=== PATIENT | male | born 1975 | race Caucasian/White ===

== ENCOUNTER → 2019-04-07 | Outpatient (CLI) | payer MEDICARE ==
[2019-04-07 15:30] LABS: BASO # 0.1 (0.02-0.10); EOS # 0.1 (0.04-0.40); HEMATOCRIT 42.1 % (42.0-52.0); HEMOGLOBIN 13.2 g/dL (13.5-18.0); LYMPH# 2.4 (1.50-4.00); MEAN CELL VOLUME 89 fl (78-100); MEAN CORPUSCULAR HEMOGLOBIN 28 pg (27-31); MEAN CORPUSCULAR HGB CONC 31 g/dL (33-37); MEAN PLATELET VOLUME 9.2 fl (7.4-10.4); MONO # 0.7 (0.20-0.80); NEU # 5.5 (1.40-6.50); PLATELET COUNT 267 K/mm3 (130-400); RED BLOOD COUNT 4.71 M/mm3 (4.20-5.60); RED CELL DISTRIBUTION WIDTH 14.9 % (11.5-14.5); WHITE BLOOD COUNT 8.8 K/mm3 (4.8-10.8)
[2019-04-07 15:54] LABS: POTASSIUM 3.9 mmol/L (3.5-5.1)
[2019-04-07 15:55] LABS: ALBUMIN 4.1 g/dL (3.5-5.0)
[2019-04-07 15:56] LABS: CALCIUM 9.1 mg/dL (8.3-10.5)
[2019-04-07 15:57] LABS: TOTAL PROTEIN 7.1 g/dL (6.4-8.3)
[2019-04-07 15:59] LABS: TOTAL BILIRUBIN 0.9 mg/dL (0.2-1.2)
[2019-04-07 16:03] LABS: MAGNESIUM 1.39 mg/dL (1.60-2.60)
[2019-04-07 16:34] LABS: ERYTHROCYTE SEDIMENTATION RATE 9 mm/hr (0-15)
[2019-04-08 15:19] LABS: TESTOSTERONE 293 ng/dL (240-871)
== END ==
LOC: RAD 14:47
PROVIDERS: Internal Medicine
DX: Z12.5 Encounter for screening for malignant neoplasm of prostate (principal); I50.23 Acute on chronic systolic (congestive) heart failure; E11.9 Type 2 diabetes mellitus without complications; N52.9 Male erectile dysfunction, unspecified; K90.9 Intestinal malabsorption, unspecified; I51.7 Cardiomegaly; R20.2 Paresthesia of skin

== ENCOUNTER → 2019-05-05 | Outpatient (CLI) | payer MEDICARE ==
[2019-05-05 17:41] LABS: ALBUMIN 4.3 g/dL (3.5-5.0); POTASSIUM 4.8 mmol/L (3.5-5.1)
[2019-05-05 17:42] LABS: CALCIUM 10.3 mg/dL (8.3-10.5)
[2019-05-05 17:43] LABS: BASO # 0.1 (0.02-0.10); EOS # 0.1 (0.04-0.40); EOS % 1.5 % (0.0-4.0); HEMATOCRIT 52.6 % (42.0-52.0); HEMOGLOBIN 16.5 g/dL (13.5-18.0); LYMPH# 3.1 (1.50-4.00); MEAN CELL VOLUME 81 fl (78-100); MEAN CORPUSCULAR HEMOGLOBIN 26 pg (27-31); MEAN CORPUSCULAR HGB CONC 31 g/dL (33-37); MEAN PLATELET VOLUME 9.9 fl (7.4-10.4); MONO # 0.8 (0.20-0.80); NEU # 3.1 (1.40-6.50); PLATELET COUNT 287 K/mm3 (130-400); RED BLOOD COUNT 6.48 M/mm3 (4.20-5.60); RED CELL DISTRIBUTION WIDTH 16.3 % (11.5-14.5); WHITE BLOOD COUNT 7.2 K/mm3 (4.8-10.8)
[2019-05-05 17:44] LABS: TOTAL PROTEIN 9.2 g/dL (6.4-8.3)
[2019-05-05 17:45] LABS: TOTAL BILIRUBIN 0.8 mg/dL (0.2-1.2)
[2019-05-05 17:50] LABS: MAGNESIUM 1.71 mg/dL (1.60-2.60)
== END ==
LOC: LAB 17:13
PROVIDERS: Internal Medicine
DX: E11.9 Type 2 diabetes mellitus without complications (principal); I50.23 Acute on chronic systolic (congestive) heart failure

== ENCOUNTER → 2019-06-02 | Outpatient (CLI) | payer MEDICARE, MEDICAID ==
[2019-06-02 16:40] LABS: EOS # 0.1 (0.04-0.40); EOS % 1.3 % (0.0-4.0); HEMATOCRIT 49.5 % (42.0-52.0); HEMOGLOBIN 16.1 g/dL (13.5-18.0); LYMPH# 3.1 (1.50-4.00); MEAN CELL VOLUME 79 fl (78-100); MEAN CORPUSCULAR HEMOGLOBIN 26 pg (27-31); MEAN CORPUSCULAR HGB CONC 33 g/dL (33-37); MEAN PLATELET VOLUME 9.7 fl (7.4-10.4); MONO # 0.6 (0.20-0.80); NEU # 3.7 (1.40-6.50); PLATELET COUNT 225 K/mm3 (130-400); RED BLOOD COUNT 6.27 M/mm3 (4.20-5.60); RED CELL DISTRIBUTION WIDTH 16.9 % (11.5-14.5); WHITE BLOOD COUNT 7.4 K/mm3 (4.8-10.8)
[2019-06-02 16:48] LABS: ALBUMIN 4.3 g/dL (3.5-5.0)
[2019-06-02 16:49] LABS: POTASSIUM 4.3 mmol/L (3.5-5.1)
[2019-06-02 16:50] LABS: CALCIUM 8.6 mg/dL (8.3-10.5)
[2019-06-02 16:51] LABS: TOTAL PROTEIN 8.6 g/dL (6.4-8.3)
[2019-06-02 16:53] LABS: TOTAL BILIRUBIN 0.9 mg/dL (0.2-1.2)
[2019-06-02 16:58] LABS: MAGNESIUM 1.55 mg/dL (1.60-2.60)
== END ==
LOC: LAB 16:23
PROVIDERS: Internal Medicine
DX: E11.9 Type 2 diabetes mellitus without complications (principal); I50.23 Acute on chronic systolic (congestive) heart failure

== ENCOUNTER → 2019-06-16 | Outpatient (CLI) | payer MEDICARE, MEDICAID ==
[2019-06-16 17:23] LABS: ALBUMIN 4.5 g/dL (3.5-5.0); POTASSIUM 4.2 mmol/L (3.5-5.1)
[2019-06-16 17:24] LABS: CALCIUM 10.1 mg/dL (8.3-10.5)
[2019-06-16 17:25] LABS: TOTAL PROTEIN 8.4 g/dL (6.4-8.3)
[2019-06-16 17:27] LABS: TOTAL BILIRUBIN 0.5 mg/dL (0.2-1.2)
[2019-06-16 17:32] LABS: MAGNESIUM 1.87 mg/dL (1.60-2.60)
== END ==
LOC: LAB 16:49
PROVIDERS: Internal Medicine
DX: E11.9 Type 2 diabetes mellitus without complications (principal); I50.23 Acute on chronic systolic (congestive) heart failure

== ENCOUNTER → 2019-06-23 | Outpatient (CLI) | payer MEDICARE, MEDICAID ==
[2019-06-23 17:34] LABS: ALBUMIN 3.8 g/dL (3.5-5.0); POTASSIUM 4.3 mmol/L (3.5-5.1)
[2019-06-23 17:37] LABS: TOTAL PROTEIN 7.6 g/dL (6.4-8.3)
[2019-06-23 17:39] LABS: TOTAL BILIRUBIN 0.5 mg/dL (0.2-1.2)
[2019-06-23 17:43] LABS: MAGNESIUM 1.81 mg/dL (1.60-2.60)
== END ==
LOC: LAB 17:05
PROVIDERS: Internal Medicine
DX: E11.9 Type 2 diabetes mellitus without complications (principal); I50.23 Acute on chronic systolic (congestive) heart failure

== ENCOUNTER → 2019-06-30 | Outpatient (CLI) | payer MEDICARE, MEDICAID ==
[2019-06-30 17:29] LABS: ALBUMIN 4.2 g/dL (3.5-5.0)
[2019-06-30 17:30] LABS: POTASSIUM 4.1 mmol/L (3.5-5.1)
[2019-06-30 17:31] LABS: CALCIUM 9.4 mg/dL (8.3-10.5)
[2019-06-30 17:32] LABS: TOTAL PROTEIN 8.3 g/dL (6.4-8.3)
[2019-06-30 17:34] LABS: TOTAL BILIRUBIN 0.6 mg/dL (0.2-1.2)
[2019-06-30 17:38] LABS: MAGNESIUM 1.68 mg/dL (1.60-2.60)
== END ==
LOC: LAB 17:04
PROVIDERS: Internal Medicine
DX: E11.9 Type 2 diabetes mellitus without complications (principal); I50.23 Acute on chronic systolic (congestive) heart failure

== ENCOUNTER → 2019-07-07 | Outpatient (CLI) | payer MEDICARE, MEDICAID ==
[2019-07-07 16:36] LABS: POTASSIUM 4.5 mmol/L (3.5-5.1)
[2019-07-07 16:37] LABS: CALCIUM 9.3 mg/dL (8.3-10.5)
[2019-07-07 16:38] LABS: TOTAL PROTEIN 7.6 g/dL (6.4-8.3)
[2019-07-07 16:40] LABS: TOTAL BILIRUBIN 0.4 mg/dL (0.2-1.2)
[2019-07-07 16:45] LABS: MAGNESIUM 1.58 mg/dL (1.60-2.60)
== END ==
LOC: LAB 16:08
PROVIDERS: Internal Medicine
DX: I50.23 Acute on chronic systolic (congestive) heart failure (principal); E11.9 Type 2 diabetes mellitus without complications

== ENCOUNTER → 2019-07-21 | Outpatient (CLI) | payer MEDICARE, MEDICAID ==
[2019-07-21 17:42] LABS: ALBUMIN 4.3 g/dL (3.5-5.0)
[2019-07-21 17:43] LABS: POTASSIUM 4.8 mmol/L (3.5-5.1)
[2019-07-21 17:44] LABS: CALCIUM 9.9 mg/dL (8.3-10.5)
[2019-07-21 17:47] LABS: TOTAL BILIRUBIN 0.6 mg/dL (0.2-1.2)
[2019-07-21 17:52] LABS: MAGNESIUM 2.18 mg/dL (1.60-2.60)
== END ==
LOC: LAB 16:55
PROVIDERS: Internal Medicine
DX: M79.642 Pain in left hand (principal)

== ENCOUNTER → 2019-09-04 | Outpatient (CLI) | payer MEDICARE, MEDICAID ==
[2019-09-04 10:55] LABS: ALBUMIN 3.7 g/dL (3.5-5.0)
[2019-09-04 10:56] LABS: POTASSIUM 3.8 mmol/L (3.5-5.1)
[2019-09-04 10:57] LABS: CALCIUM 8.3 mg/dL (8.3-10.5)
[2019-09-04 10:58] LABS: TOTAL PROTEIN 7.4 g/dL (6.4-8.3)
[2019-09-04 11:00] LABS: TOTAL BILIRUBIN 0.4 mg/dL (0.2-1.2)
[2019-09-04 11:02] LABS: EOS # 0.1 (0.04-0.40); EOS % 1.2 % (0.0-4.0); HEMATOCRIT 38.9 % (42.0-52.0); HEMOGLOBIN 12.2 g/dL (13.5-18.0); MEAN CELL VOLUME 94 fl (78-100); MEAN CORPUSCULAR HEMOGLOBIN 29 pg (27-31); MEAN CORPUSCULAR HGB CONC 31 g/dL (33-37); MEAN PLATELET VOLUME 8.5 fl (7.4-10.4); MONO # 0.5 (0.20-0.80); NEU # 4.7 (1.40-6.50); RED BLOOD COUNT 4.15 M/mm3 (4.20-5.60); RED CELL DISTRIBUTION WIDTH 16.8 % (11.5-14.5); WHITE BLOOD COUNT 8.4 K/mm3 (4.8-10.8)
[2019-09-04 11:04] LABS: MAGNESIUM 1.86 mg/dL (1.60-2.60)
[2019-09-04 11:17] LABS: PLATELET COUNT 586 K/mm3 (130-400)
== END ==
LOC: LAB 10:13
PROVIDERS: Internal Medicine
DX: E11.9 Type 2 diabetes mellitus without complications (principal); I50.23 Acute on chronic systolic (congestive) heart failure

== ENCOUNTER → 2020-01-06 | Outpatient (CLI) | payer MEDICARE, MEDICAID ==
[2020-01-06 15:58] LABS: EOS # 0.1 (0.04-0.40); EOS % 1.5 % (0.0-4.0); HEMATOCRIT 51.5 % (42.0-52.0); HEMOGLOBIN 16.7 g/dL (13.5-18.0); LYMPH# 3.6 (1.50-4.00); MEAN CELL VOLUME 87 fl (78-100); MEAN CORPUSCULAR HEMOGLOBIN 28 pg (27-31); MEAN CORPUSCULAR HGB CONC 32 g/dL (33-37); MEAN PLATELET VOLUME 9.5 fl (7.4-10.4); MONO # 0.6 (0.20-0.80); NEU # 4.7 (1.40-6.50); PLATELET COUNT 212 K/mm3 (130-400); RED BLOOD COUNT 5.91 M/mm3 (4.20-5.60); RED CELL DISTRIBUTION WIDTH 15.5 % (11.5-14.5); WHITE BLOOD COUNT 9.1 K/mm3 (4.8-10.8)
[2020-01-06 16:08] LABS: ALBUMIN 4.4 g/dL (3.5-5.0)
[2020-01-06 16:09] LABS: POTASSIUM 4.5 mmol/L (3.5-5.1)
[2020-01-06 16:10] LABS: CALCIUM 9.5 mg/dL (8.3-10.5)
[2020-01-06 16:11] LABS: TOTAL PROTEIN 8.9 g/dL (6.4-8.3)
[2020-01-06 16:13] LABS: TOTAL BILIRUBIN 0.8 mg/dL (0.2-1.2)
[2020-01-06 16:18] LABS: MAGNESIUM 1.64 mg/dL (1.60-2.60)
== END ==
LOC: LAB 15:32
PROVIDERS: Internal Medicine
DX: E11.9 Type 2 diabetes mellitus without complications (principal); I50.20 Unspecified systolic (congestive) heart failure

== ENCOUNTER → 2020-03-01 | Outpatient (CLI) | payer MEDICARE, MEDICAID ==
[2020-03-01 12:59] LABS: EOS # 0.1 (0.04-0.40); EOS % 1.2 % (0.0-4.0); HEMATOCRIT 44.6 % (42.0-52.0); HEMOGLOBIN 13.9 g/dL (13.5-18.0); LYMPH# 2.8 (1.50-4.00); MEAN CELL VOLUME 90 fl (78-100); MEAN CORPUSCULAR HEMOGLOBIN 28 pg (27-31); MEAN CORPUSCULAR HGB CONC 31 g/dL (33-37); MEAN PLATELET VOLUME 8.5 fl (7.4-10.4); MONO # 0.5 (0.20-0.80); NEU # 4.1 (1.40-6.50); PLATELET COUNT 327 K/mm3 (130-400); RED BLOOD COUNT 4.96 M/mm3 (4.20-5.60); RED CELL DISTRIBUTION WIDTH 14.6 % (11.5-14.5); WHITE BLOOD COUNT 7.6 K/mm3 (4.8-10.8)
[2020-03-01 13:08] LABS: ALBUMIN 3.9 g/dL (3.5-5.0); POTASSIUM 3.8 mmol/L (3.5-5.1)
[2020-03-01 13:11] LABS: TOTAL PROTEIN 7.6 g/dL (6.4-8.3)
[2020-03-01 13:13] LABS: TOTAL BILIRUBIN 0.3 mg/dL (0.2-1.2)
[2020-03-01 13:17] LABS: MAGNESIUM 1.7 mg/dL (1.60-2.60)
== END ==
LOC: LAB 12:29
PROVIDERS: Internal Medicine
DX: I50.20 Unspecified systolic (congestive) heart failure (principal); E11.9 Type 2 diabetes mellitus without complications

== ENCOUNTER → 2020-09-03 | Outpatient (CLI) | payer MEDICARE, MEDICAID | LOC: RAD 10:00 | DX: M25.571 Pain in right ankle and joints of right foot (principal); R29.6 Repeated falls ==

== ENCOUNTER → 2020-10-07 | Outpatient (CLI) | payer MEDICARE, MEDICAID ==
[2020-10-07 16:13] LABS: BASO # 0.07 (0.02-0.10); EOS # 0.15 (0.04-0.40); EOS % 2.5 % (0.0-4.0); HEMATOCRIT 41.8 % (42.0-52.0); HEMOGLOBIN 12.7 g/dL (13.5-18.0); LYMPH# 2.59 (1.50-4.00); MEAN CELL VOLUME 85 fl (78-100); MEAN CORPUSCULAR HEMOGLOBIN 26 pg (27-31); MEAN CORPUSCULAR HGB CONC 30 g/dL (33-37); MEAN PLATELET VOLUME 8.4 fl (7.4-10.4); MONO # 0.48 (0.20-0.80); PLATELET COUNT 271 K/mm3 (130-400); RED BLOOD COUNT 4.94 M/mm3 (4.20-5.60); RED CELL DISTRIBUTION WIDTH 21.2 % (11.5-14.5); WHITE BLOOD COUNT 6.1 K/mm3 (4.8-10.8)
[2020-10-07 16:25] LABS: ALBUMIN 3.8 g/dL (3.5-5.0)
[2020-10-07 16:27] LABS: CALCIUM 8.3 mg/dL (8.3-10.5)
[2020-10-07 16:28] LABS: TOTAL PROTEIN 7.5 g/dL (6.4-8.3)
[2020-10-07 16:30] LABS: TOTAL BILIRUBIN 1.2 mg/dL (0.2-1.2)
[2020-10-07 16:34] LABS: MAGNESIUM 1.68 mg/dL (1.60-2.60)
== END ==
LOC: LAB 15:52
PROVIDERS: Internal Medicine
DX: Z12.5 Encounter for screening for malignant neoplasm of prostate (principal); E78.5 Hyperlipidemia, unspecified; E11.9 Type 2 diabetes mellitus without complications; I50.23 Acute on chronic systolic (congestive) heart failure; K90.9 Intestinal malabsorption, unspecified